=== PATIENT | male | born 1990 | race Caucasian/White ===

== ENCOUNTER 2018-06-28 09:03 | Emergency (ER) | payer OTHER ==
[~2018-06-28] VITALS: Ht 172.7 cm; Wt 127.0 kg
[~2018-06-28 09:03] MED LIST: CIPR500T4 PO; DOCU-144 PO; HYDR-762 PO; IBUP-1542 PO; IBUP-40 PO; METR500T PO
[2018-06-28 09:07] VITALS: Ht 172.7 cm; Wt 127.0 kg
[2018-06-28] MEDS ORDERED: BELLADONNA/PHENOBARBITAL TAB PO STA (09:30)
[2018-06-28] MEDS ORDERED: FAMOTIDINE 20 MG TAB PO STA (09:30)
[2018-06-28] MEDS ORDERED: ONDANSETRON (ODT) 4 MG TAB ODT STA (09:30)
[2018-06-28] MEDS ORDERED: LIDOCAINE/MYLANTA 40 ML BTL PO STA (09:30)
[2018-06-28] MEDS ORDERED: FAMO-96 PO (09:33)
[2018-06-28] MEDS ORDERED: MAG355OR14 PO (09:33)
[2018-06-28] MEDS ORDERED: ONDA4TAB8 PO (09:33)
[2018-06-28 10:27] VITALS: BP 146/78; PULSE 69; RESP 19
--- NOTE | 2018-06-28 12:48 | ERD ---
ER Documentation Chief Complaint Chief Complaint ABD PAIN WITH VOMITING , ONSET 0300 AM HPI This is a 27-year-old man complaining of 1 day burning epigastric pain. Pain was made worse by p.o. intake yesterday. He states the pain is nonradiating and nonexertional, sharp. He denies blood per rectum or melena, no weight loss. Patient denies chest pain or shortness of breath, no diarrhea, patient does state he had one episode of clear nonbloody nonbilious emesis yesterday and feels nauseous. ROS All systems reviewed and are negative except as per history of present illness. Medications Home Meds Active Scripts Ondansetron Hcl* (Zofran*) 4 Mg Tablet, 4 MG PO Q8H PRN for NAUSEA AND/OR VOMITING, #30 TAB Prov:JAXON BRITO MD 06/28/18 Famotidine* (Pepcid*) 20 Mg Tablet, 20 MG PO BID for 4 Days, #28 TAB Prov:JAXON BRITO MD 06/28/18 Mag Hydrox/Al Hydrox/Simeth (Maalox Advanced Suspension) 355 Ml Oral.susp, 2 TSP PO TID PRN for PAIN, #20 OZ Prov:JAXON BRITO MD 06/28/18 Ciprofloxacin Hcl* (Ciprofloxacin Hcl*) 500 Mg Tablet, 500 MG PO BID for 10 Days, TAB Prov:TAMMI NEVAREZ PA-C 04/12/18 Metronidazole* (Flagyl*) 500 Mg Tablet, 500 MG PO Q8 for 10 Days, #30 TAB Prov:TAMMI NEVAREZ PA-C 04/12/18 Ibuprofen* (Motrin*) 600 Mg Tab, 600 MG PO Q6, #30 TAB Prov:TAMMI NEVAREZ PA-C 04/12/18 Hydrocodone Bit-Acetaminophen* (Antelope*) 10-325 Mg Tablet, 1 TAB PO Q6 PRN for PAIN, #20 TAB Prov:REGINALDO AMADO PA-C 03/28/15 Docusate Sodium* (Colace*) 100 Mg Capsule, 100 MG PO TID, #60 CAP Prov:REGINALDO AMADO PA-C 03/28/15 Ciprofloxacin Hcl* (Ciprofloxacin Hcl*) 500 Mg Tablet, 500 MG PO BID for 7 Days, TAB Prov:REGINALDO AMADO PA-C 03/28/15 Metronidazole* (Flagyl*) 500 Mg Tablet, 500 MG PO TID for 7 Days, TAB Prov:REGINALDO AMADO PA-C 03/28/15 Reported Medications Ibuprofen (Advil) 200 Mg Tablet, 400 MG PO QID 07/06/11 Allergies Allergies: Coded Allergies: No Known Allergy (Verified , 07/06/11) PMhx/Soc Obesity, history of diverticulitis History of Surgery: Yes (abdominal) Anesthesia Reaction: No Hx Neurological Disorder: No Hx Respiratory Disorders: No Hx Cardiac Disorders: No Hx Psychiatric Problems: No Hx Miscellaneous Medical Probl: Yes (diverticulosis) Hx Alcohol Use: Yes Hx Substance Use: Yes (marijuana) Hx Tobacco Use: No Smoking Status: Never smoker Physical Exam Vitals Vital Signs Date Temp Pulse Resp B/P (MAP) Pulse Ox O2 O2 Flow FiO2 Time Delivery Rate 06/28/18 98.2 69 19 146/78 100 10:27 (100) 06/28/18 98.4 83 18 172/87 99 09:07 (115) Physical Exam GENERAL: Well-developed, well-nourished, well-hydrated, in no apparent distress, looks nontoxic in appearance HEENT: Moist mucous membranes, pink conjunctiva, no cervical spine tenderness or step-off deformities, no goiter, no jaundice or icterus, extraocular movements intact without pain. No submandibular induration, and no pharyngeal erythema NEURO: Alert and oriented 3, cranial nerves II through XII intact bilaterally, pupils equal round reactive to light, no focal deficits or facial asymmetry, sensation intact distally Strength 5/5 in upper and lower extremities bilaterally CARDIAC: Regular rate and rhythm, no murmurs rubs or gallops LUNGS: Clear bilaterally no wheezing crackles or stridor ABDOMEN: Soft nontender, no guarding, no rigidity, no rebound, no psoas sign no obturator sign. Normoactive bowel sounds. No Culp sign Results 24 hrs Current Medications Medications Dose Sig/Pamela Start Time Status Last (Trade) Ordered Route PRN Stop Time Admin Dose Reason Admin Famotidine 20 mg ONCE STAT 06/28/18 DC 06/28/18 (Pepcid) PO 09:30 09:51 06/28/18 09:32 40 ml ONCE STAT 06/28/18 DC 06/28/18 Miscellaneous PO 09:30 09:51 Medication 06/28/18 09:32 (Gi Cocktail (2)) Belladonna/ 2 tab ONCE STAT 06/28/18 DC 06/28/18 Phenobarbital PO 09:30 09:51 () 06/28/18 09:32 Ondansetron 4 mg ONCE STAT 06/28/18 DC 06/28/18 HCl (Zofran ODT 09:30 09:50 Odt) 06/28/18 09:32 Procedures/MDM Exam was benign and patient appears hydrated and well-appearing. Vital signs are normal. I administered Zofran, famotidine, and GI cocktail p.o. Patient feels much better at this time, and vital signs are normal, symptoms have improved. I did give strict instructions to return to the ED if symptoms continue or worsen, patient will otherwise follow-up with primary care physician. Patient understood instructions and agreed to plan. Disclaimer: Inadvertent spelling and grammatical errors are likely due to EHR/dictation software use and do not reflect on the overall quality of patient care. Also, please note that the electronic time recorded on this note does not necessarily reflect the actual time of the patient encounter. Departure Diagnosis: Primary Impression: Abdominal pain Abdominal location: epigastric Qualified Codes: R10.13 - Epigastric pain Condition: Good Patient Instructions: Gastritis (Adult), Gastritis Vs. Ulcer JAXON BRITO MD Jun 28, 2018 12:48
== END 2018-06-28 10:28 | disposition home or self-care (01) ==
LOC: FTE 09:03
DX: R10.13 Epigastric pain (principal); E66.9 Obesity, unspecified; Z68.41 Body mass index [BMI] 40.0-44.9, adult
CPT/HCPCS: Z7502; Z7610; 99283